=== PATIENT | female | born 1965 | race Caucasian/White ===

== ENCOUNTER → 2025-05-16 | Outpatient (CLI) | payer MEDICAID ==
[~2025-05-16] VITALS: Ht 167.6 cm; Wt 62.6 kg
[2025-05-16 11:29] LABS: Hematocrit 43.4 % (36.0-46.0); Hemoglobin 15.2 g/dL (12.2-16.2); Mean Corpuscular Hemoglobin 32.1 pg (28.0-32.0); Mean Corpuscular Volume 91.9 fL (80.0-100.0); Nucleated Red Blood Cells % 0.1 %
[2025-05-16 11:43] LABS: Urine Protein, UAD Negative (Negative)
[2025-05-16 11:44] LABS: INR 0.92 (0.9-1.15); Partial Thromboplastin Time 24.3 SEC (24.5-34.5); Prothrombin Time 9.8 sec (9.3-11.8)
[2025-05-16 12:03] LABS: Alanine Aminotransferase 35 U/L (7-40); Alkaline Phosphatase 103 U/L (46-116); Anion Gap 8 (5-15); BUN/Creatinine Ratio 7.7 (10.0-20.0); Calcium 9.5 mg/dL (8.7-10.4); Carbon Dioxide 29 mmol/L (20-31); Chloride 105 mmol/L (98-107); Glucose 84 mg/dL (74-106); Potassium 3.8 mmol/L (3.5-5.1); Sodium 142 mmol/L (136-145); Total Protein 7.6 g/dL (5.7-8.2)
[2025-05-16 12:04] LABS: Albumin 4.8 g/dL (3.2-4.8); Bilirubin, Total 1.5 mg/dL (0.2-1.0); Blood Urea Nitrogen 5 mg/dL (9-23)
== END | disposition home or self-care (01) ==
LOC: LAB 11:11 → EDSTATUS 05-22 14:02
PROVIDERS: ATTEND Podiatrist
DX: Z01.812 Encounter for preprocedural laboratory examination (principal); M21.612 Bunion of left foot; M20.42 Other hammer toe(s) (acquired), left foot
CPT/HCPCS: 36415; 80053; 81001; 85025; 85610; 85730

== ENCOUNTER → 2025-05-25 | Outpatient (CLI) | payer MEDICAID ==
[2025-05-25 11:00] LABS: Urine Protein, UAD Negative (Negative)
[2025-05-25 11:13] LABS: INR 0.95 (0.9-1.15); Partial Thromboplastin Time 23.3 SEC (24.5-34.5); Prothrombin Time 10.1 sec (9.3-11.8)
[2025-05-25 11:14] LABS: Hematocrit 46.8 % (36.0-46.0); Hemoglobin 16.0 g/dL (12.2-16.2); Mean Corpuscular Hemoglobin 32.8 pg (28.0-32.0); Mean Corpuscular Volume 95.9 fL (80.0-100.0); Nucleated Red Blood Cells % 0.0 %
[2025-05-25 11:44] LABS: Albumin 4.7 g/dL (3.2-4.8); Alkaline Phosphatase 96 U/L (46-116); Anion Gap 13 (5-15); Calcium 9.5 mg/dL (8.7-10.4); Carbon Dioxide 24 mmol/L (20-31); Chloride 104 mmol/L (98-107); Sodium 141 mmol/L (136-145); Total Protein 7.6 g/dL (5.7-8.2)
[2025-05-25 11:57] LABS: Alanine Aminotransferase 28 U/L (7-40); BUN/Creatinine Ratio 7.8 (10.0-20.0); Bilirubin, Total 1.3 mg/dL (0.2-1.0); Blood Urea Nitrogen < 5 mg/dL (9-23); Glucose 64 mg/dL (74-106); Potassium 4.4 mmol/L (3.5-5.1)
== END | disposition home or self-care (01) ==
LOC: LAB 10:25 → EDSTATUS 05-31 12:04
PROVIDERS: ATTEND Podiatrist
DX: M21.612 Bunion of left foot (principal); Z01.812 Encounter for preprocedural laboratory examination; M25.872 Other specified joint disorders, left ankle and foot
CPT/HCPCS: 36415; 80053; 81001; 85025; 85610; 85730